=== PATIENT | male | born 1980 | race Caucasian/White ===

== ENCOUNTER 2017-07-18 21:14 | Emergency (ER) | payer OTHER ==
[~2017-07-18] VITALS: Ht 182.9 cm; Wt 111.7 kg
[2017-07-18 21:34] VITALS: TEMP 37.1; Ht 182.9 cm; Wt 111.7 kg
--- NOTE | 2017-07-18 22:28 | DIAGNOSTIC IMAGING REPORT ---
RIGHT KNEE 3 VIEWS CLINICAL HISTORY: Right knee pain. COMPARISON: None FINDINGS: Alignment of the right knee is anatomic. There is no acute fracture. There is an equivocal joint effusion. Joint spaces are preserved. IMPRESSION: 1. No acute fracture. 2. Possible small right knee joint effusion. Electronically signed by: Marito Schroeder M.D. 07/18/2017 10:27 PM Dictated Date/Time: 07/18/2017 10:26 PM
--- NOTE | 2017-07-18 22:37 | EMERGENCY ROOM VISIT NOTE ---
ED Visit Note First contact with patient: 21:44 CHIEF COMPLAINT: Right knee injury 2 days ago HISTORY OF PRESENT ILLNESS: Patient is a 37-year-old white male who presents the emergency department for evaluation of right knee pain. He reports that he was running around and thinks that he may have twisted the knee. He notes pain in the posterior lateral aspect of the right knee, it is worse when he tries to twist or rotate, and he feels a popping sensation. He is able to walk and bear weight. He states it feels a little bit tight. He had a similar injury occur couple of months ago, but did not seek medical attention at that time. He rates his discomfort a 3/10. He has been using ibuprofen for discomfort. He is on Suboxone for history of opioid abuse. REVIEW OF SYSTEMS: Review of systems as per HPI. All other systems reviewed were negative. At least 6 systems reviewed. PMH: Electronic medical records are reviewed and summarized as above/below. See Problem List. SOCIAL HISTORY: Patient lives at home. Former smoker. He is employed. PHYSICAL EXAM: Vital Signs: Reviewed Nurse's notes. MENTAL STATUS: Alert, oriented, and cooperative. KNEE: Examination of the right knee notes a mild joint effusion. There is no prepatellar soft tissue swelling. He has no peripatellar tenderness or crepitus. He has some medial joint line discomfort. Knee is stable to varus and valgus and 0 30. Anterior drawer with solid endpoint. Right lower extremity is neurovascularly intact. Normal gait. EMERGENCY DEPARTMENT COURSE: The patient was seen and assessed as above. Old records were reviewed. X-rays of the right knee were obtained, and noted a small joint effusion, no acute bony abnormality. Differential diagnoses entertained including knee sprain, patellofemoral pain syndrome, chondromalacia , patellar instability, meniscal or ligamentous tear, among others. The patient was encouraged to continue conservative care and follow-up with orthopedics. Medication reconciliation: I attest that I have personally reviewed the patient' s current medication list. Blood pressure screening : Patient was found to have normal blood pressure on screening and does not require follow-up. RIGHT KNEE 3 VIEWS CLINICAL HISTORY: Right knee pain. COMPARISON: None FINDINGS: Alignment of the right knee is anatomic. There is no acute fracture. There is an equivocal joint effusion. Joint spaces are preserved. IMPRESSION: 1. No acute fracture. 2. Possible small right knee joint effusion. Problem List Medical Problems: (1) Opioid dependence on agonist therapy Status: Chronic Current/Historical Medications Miscellaneous Medications None (Patient States No Home Meds) Allergies Coded Allergies: No Known Allergies (Unverified Allergy, Mild, 03/09/08) Vital Signs Date Time Temp Pulse Resp B/P (MAP) Pulse Ox O2 Delivery O2 Flow Rate FiO2 07/18/17 22:47 90 18 144/94 95 Room Air 07/18/17 21:34 37.1 69 18 132/84 96 Room Air Departure Information Impression Primary Impression: Right knee injury Referrals No Doctor, Assigned (PCP) Richi Leslie M.D. Patient Instructions [facility] Additional Instructions Ibuprofen(Motrin, Advil) may be used for fever or pain. Use 600mg every six hours as needed. Take with food. Avoid using more than 2400mg in a 24 hour period. Do not use 2400mg per day for more than three consecutive days without physician direction. Prolonged inappropriate use can lead to stomach upset or ulcers. This medication can be taken if you need to drive, work, or perform activities which may be dangerous when taking narcotic pain medication. (AND/OR) Acetaminophen(Tylenol) may be used for fever or pain. Use 1000mg every six hours as needed. Avoid using more than 3000mg in a 24 hour period. This medication can be taken if you need to drive, work, or perform activities which may be dangerous when taking narcotic pain medication. Ice compresses for 20 minutes at a time four times daily for 2-3 days. Rest and elevate your injury. Continue current medications. Return to the ER immediately for any numbness, tingling, severe pain, extreme swelling in the extremity or as needed. Followup with your family doctor or orthopedic surgery if no improvement in 5-7 days.
[2017-07-18 22:47] VITALS: BP 144/94; PULSE 90; O2SAT 95
== END 2017-07-18 22:51 | disposition home or self-care (01) ==
LOC: C.EDB 21:15 → C.EDD 22:51
DX: S89.91XA Unspecified injury of right lower leg, initial encounter (principal); M25.461 Effusion, right knee; F11.21 Opioid dependence, in remission; Z79.899 Other long term (current) drug therapy; Z87.891 Personal history of nicotine dependence; X50.1XXA Overexertion from prolonged static or awkward postures, initial encounter; Y93.02 Activity, running